=== PATIENT | female | born 1930 | race Caucasian/White ===

== ENCOUNTER 2020-03-23 14:29 | Inpatient (IN) | payer MEDICARE, MEDICAID ==
[~2020-03-23] VITALS: Ht 132.1 cm; Wt 64.0 kg
[~2020-03-23 14:29] MED LIST: FURO40TA5 PO; IPRA3AMP31 NEB; LEVO100T PO; OMEP20CA14 MT
[2020-03-23] MEDS ORDERED: SODIUM CHLORIDE 0.9% 1000ML BAG (SEPSIS BOLUS) IV ONE (15:00)
[2020-03-23 15:39] LABS: CLARITY URINE CLEAR (CLEAR); COLOR URINE YELLOW (YELLOW); KETONES URINE NEGATIVE (NEGATIVE); LEUKOCYTE ESTERASE URINE TRACE (NEGATIVE); NITRITE URINE NEGATIVE (NEGATIVE); OCCULT BLOOD URINE TRACE (NEGATIVE); PROTEIN URINE NEGATIVE (NEGATIVE); SPECIFIC GRAVITY URINE 1.008 (1.005-1.030); UROBILINOGEN URINE 0.2 E.U./dL (0.2-1.0)
[2020-03-23 15:42] LABS: BASOPHILS % 0.5 % (0.0-2.0); EOSINOPHILS % 0.9 % (0.0-5.0); HEMATOCRIT. 37.6 % (36.0-48.0); HEMOGLOBIN. 12.4 g/dL (12.0-16.0); LYMPHOCYTES % 32.9 % (20.0-50.0); MEAN CORPUSCULAR HEMOGLOBIN 28.2 pg (28.0-32.0); MEAN CORPUSCULAR VOLUME 85.5 fL (81.0-99.0); MEAN PLATELET VOLUME 9.1 fl (7.4-10.4); MONOCYTES % 7.9 % (2.0-8.0); NEUTROPHILS % 57.8 % (40.0-76.0); PLATELET 270 x1000/uL (130-400); RED CELL DISTRIBUTION WIDTH 14.5 % (11.6-14.6)
[2020-03-23] MEDS ORDERED: IPRATROPIUM BROMIDE (0.02%) 0.5MG/2.5ML NEB HHN ONE (15:45)
[2020-03-23] MEDS ORDERED: PREDNISONE 20MG TABLET PO ONE (15:45)
[2020-03-23] MEDS ORDERED: ALBUTEROL (0.083%) 2.5MG/3ML NEB HHN ONE (15:45)
[2020-03-23 15:49] LABS: PROTHROMBIN TIME 10.2 sec (9.6-11.0)
[2020-03-23 15:50] LABS: CHLORIDE 102 mEq/L (98-107)
[2020-03-23] MEDS ORDERED: LEVOFLOXACIN 500MG PREMIX 100 ML IV ONE (16:30)
[2020-03-23] MEDS ORDERED: ONDANSETRON HCL 4MG/2ML INJ IV PRN (17:00)
[2020-03-23] MEDS ORDERED: MAGNESIUM/ALUMINUM HYDROXIDE/SIMETHICONE 30ML UDC PO PRN (17:00)
[2020-03-23] MEDS ORDERED: ACETAMINOPHEN 325MG TABLET PO PRN ×2 (17:00)
[2020-03-23] MEDS ORDERED: CLONIDINE 0.1MG TABLET PO PRN (17:00)
[2020-03-23] MEDS ORDERED: ENOXAPARIN 40MG/0.4ML SYR SUBCUT SCH (17:00)
[2020-03-23] MEDS ORDERED: IPRATROPIUM/ALBUTEROL 0.5-3(2.5)MG/3ML NEB NEB PRN (17:00)
[2020-03-23] MEDS ORDERED: GUAIFENESIN 200MG/10ML SUGAR FREE UDC PO PRN (17:00)
[2020-03-23] MEDS ORDERED: NA PHOS,M-B/NA PHOS,DI-BA ENEMA 118ML PR PRN (17:00)
[2020-03-23] MEDS ORDERED: NITROGLYCERIN 0.4MG TABLET SL SL PRN (17:00)
[2020-03-23] MEDS ORDERED: TRAMADOL 50MG TABLET PO PRN (17:00)
[2020-03-23] MEDS ORDERED: DOCUSATE SODIUM 100MG CAPSULE PO PRN (17:00)
[2020-03-23] MEDS: ENOXAPARIN 30MG/0.3ML SYR SUBCUT SCH (17:35)
[2020-03-23] MEDS: FUROSEMIDE 40MG/4ML VIAL IVP SCH (17:35)
[2020-03-23 20:38] LABS: T4 FREE 1.51 ng/dL (0.76-1.46)
[2020-03-23] MEDS: LISINOPRIL 5MG TABLET PO SCH (21:00)
[2020-03-23] MEDS ORDERED: ZOLPIDEM TARTRATE 5MG TABLET PO PRN (21:00)
[2020-03-23] MEDS: SPIRONOLACTONE 25MG TABLET PO SCH (21:21)
[2020-03-23] MEDS: GUAIFENESIN/DM 600MG/30MG ER TAB 12HR PO SCH (21:22)
[2020-03-23] MEDS: FAMOTIDINE 20MG TABLET PO SCH (21:22)
[2020-03-23] MEDS: ASCORBIC ACID 500 MG TABLET PO SCH (21:22)
[2020-03-23 23:22] VITALS: BP 126/72
[2020-03-23 23:55] LABS: CREATINE KINASE MB FRACTION 1.2 ng/mL (0.5-3.6)
[2020-03-24] VITALS: BP 123/43
[2020-03-24 04:00] VITALS: BP 97/49
[2020-03-24 05:47] LABS: CHLORIDE 103 mEq/L (98-107)
[2020-03-24 05:57] LABS: CREATINE KINASE 37 IU/L (26-192)
[2020-03-24 05:59] LABS: PHOSPHORUS 3.7 mg/dL (2.5-4.9)
[2020-03-24 06:00] LABS: CREATINE KINASE MB FRACTION 1.5 ng/mL (0.5-3.6)
[2020-03-24 06:10] LABS: HEMATOCRIT. 34.3 % (36.0-48.0); HEMOGLOBIN. 11.4 g/dL (12.0-16.0); MEAN CORPUSCULAR HEMOGLOBIN 28.3 pg (28.0-32.0); MEAN CORPUSCULAR VOLUME 85.5 fL (81.0-99.0); MEAN PLATELET VOLUME 9.8 fl (7.4-10.4); PLATELET 246 x1000/uL (130-400); RED BLOOD CELL COUNT 4.02 mill/uL (4.2-5.4); RED CELL DISTRIBUTION WIDTH 14.6 % (11.6-14.6)
[2020-03-24] MEDS: FUROSEMIDE 40MG/4ML VIAL IVP SCH ×2 (07:35→19:17)
[2020-03-24 08:00] VITALS: BP 123/72
[2020-03-24] MEDS: ZINC SULFATE 220 MG ( 50 ) CAPSULE PO SCH (08:44)
[2020-03-24] MEDS: LISINOPRIL 5MG TABLET PO SCH ×2 (08:44→21:00)
[2020-03-24] MEDS: ASCORBIC ACID 500 MG TABLET PO SCH ×2 (08:44→21:39)
[2020-03-24] MEDS: GUAIFENESIN/DM 600MG/30MG ER TAB 12HR PO SCH ×2 (08:44→21:39)
[2020-03-24] MEDS: ASPIRIN 81MG EC TABLET PO SCH (08:45)
[2020-03-24] MEDS: SPIRONOLACTONE 25MG TABLET PO SCH ×2 (09:00→21:00)
[2020-03-24 09:05] LABS: PLATELET ESTIMATE NORMAL
[2020-03-24] MEDS: LEVOTHYROXINE SODIUM 112MCG TABLET PO SCH (10:40)
[2020-03-24 12:00] VITALS: BP 106/65
[2020-03-24 16:00] VITALS: BP 119/70
[2020-03-24] MEDS: ENOXAPARIN 30MG/0.3ML SYR SUBCUT SCH (19:18)
[2020-03-24 20:00] VITALS: BP 95/53
[2020-03-24] MEDS: FAMOTIDINE 20MG TABLET PO SCH (21:39)
[2020-03-25] VITALS (9 sets, daily range): BP systolic 80–101; BP diastolic 37–47
[2020-03-25] MEDS: FUROSEMIDE 40MG/4ML VIAL IVP SCH ×2 (07:15→17:15)
[2020-03-25] MEDS: SPIRONOLACTONE 25MG TABLET PO SCH ×2 (09:00→21:00)
[2020-03-25] MEDS: LISINOPRIL 5MG TABLET PO SCH ×2 (09:00→21:00)
[2020-03-25] MEDS: ZINC SULFATE 220 MG ( 50 ) CAPSULE PO SCH (10:15)
[2020-03-25] MEDS: ASCORBIC ACID 500 MG TABLET PO SCH ×2 (10:15→21:39)
[2020-03-25] MEDS: ASPIRIN 81MG EC TABLET PO SCH (10:15)
[2020-03-25] MEDS: GUAIFENESIN/DM 600MG/30MG ER TAB 12HR PO SCH ×2 (10:15→21:39)
[2020-03-25] MEDS: LEVOTHYROXINE SODIUM 112MCG TABLET PO SCH (10:15)
[2020-03-25] MEDS: ENOXAPARIN 30MG/0.3ML SYR SUBCUT SCH (18:27)
[2020-03-25] MEDS: FAMOTIDINE 20MG TABLET PO SCH (21:39)
[2020-03-26] VITALS (7 sets, daily range): BP systolic 76–127; BP diastolic 31–56
[2020-03-26] MEDS: LEVOTHYROXINE SODIUM 112MCG TABLET PO SCH (06:46)
[2020-03-26] MEDS: FUROSEMIDE 40MG/4ML VIAL IVP SCH ×2 (07:02→17:15)
[2020-03-26] MEDS: GUAIFENESIN/DM 600MG/30MG ER TAB 12HR PO SCH ×2 (09:42→20:16)
[2020-03-26] MEDS: ASPIRIN 81MG EC TABLET PO SCH (09:42)
[2020-03-26] MEDS: SPIRONOLACTONE 25MG TABLET PO SCH ×2 (09:42→20:29)
[2020-03-26] MEDS: ZINC SULFATE 220 MG ( 50 ) CAPSULE PO SCH (09:43)
[2020-03-26] MEDS: ASCORBIC ACID 500 MG TABLET PO SCH ×2 (09:43→20:16)
[2020-03-26] MEDS: LISINOPRIL 5MG TABLET PO SCH ×2 (09:43→20:29)
[2020-03-26] MEDS: ENOXAPARIN 30MG/0.3ML SYR SUBCUT SCH (18:38)
[2020-03-26] MEDS: FAMOTIDINE 20MG TABLET PO SCH (20:16)
[2020-03-27] VITALS: BP 110/28
[2020-03-27 04:00] VITALS: BP 101/34
[2020-03-27 06:21] VITALS: BP 111/32
[2020-03-27] MEDS: LEVOTHYROXINE SODIUM 112MCG TABLET PO SCH (06:21)
[2020-03-27] MEDS: FUROSEMIDE 40MG/4ML VIAL IVP SCH (06:21)
[2020-03-27 08:00] VITALS: BP 104/47
[2020-03-27] MEDS: LISINOPRIL 5MG TABLET PO SCH (09:00)
[2020-03-27] MEDS: ASPIRIN 81MG EC TABLET PO SCH (09:02)
[2020-03-27] MEDS: SPIRONOLACTONE 25MG TABLET PO SCH (09:02)
[2020-03-27] MEDS: ZINC SULFATE 220 MG ( 50 ) CAPSULE PO SCH (09:02)
[2020-03-27] MEDS: ASCORBIC ACID 500 MG TABLET PO SCH (09:03)
[2020-03-27] MEDS: GUAIFENESIN/DM 600MG/30MG ER TAB 12HR PO SCH (09:03)
[2020-03-27 10:10] VITALS: BP 104/47
[2020-03-27 12:00] VITALS: BP 126/50
== END 2020-03-27 12:25 | disposition home or self-care (01) | DRG 291 ==
LOC: ER 14:29 → SUPCPDRO 16:50 → 7EST 17:12 → EDBEDREQSVC 17:14 → EDBEDREQ 17:14 → EDBEDREQTM 17:14 → ENRESERV 21:08 → 8WST 03-24 21:10
PROVIDERS: ADMIT Internal Medicine; ATTEND Internal Medicine
DX: I11.0 Hypertensive heart disease with heart failure (principal); J96.00 Acute respiratory failure, unspecified whether with hypoxia or hypercapnia; J18.9 Pneumonia, unspecified organism; I50.33 Acute on chronic diastolic (congestive) heart failure; K21.9 Gastro-esophageal reflux disease without esophagitis; J44.9 Chronic obstructive pulmonary disease, unspecified; Z20.828 Contact with and (suspected) exposure to other viral communicable diseases; E03.9 Hypothyroidism, unspecified; Z95.0 Presence of cardiac pacemaker; Z95.1 Presence of aortocoronary bypass graft; Z88.1 Allergy status to other antibiotic agents; Z88.0 Allergy status to penicillin; Z79.899 Other long term (current) drug therapy
CPT/HCPCS: 36415; 71045; 80053; 80061; 81003; 82550; 82553; 83036; 83605; 83735; 83880; 84100; 84145; 84439; 84443; 84484; 85025; 87635; 87804; 93005; 93970; 94644; 97116; 97162; 97166; 99291; J1650; J1940; J1956; J2405; J7030; J7512

== ENCOUNTER 2020-07-09 17:28 | Inpatient (IN) | payer MEDICARE, MEDICAID ==
[~2020-07-09] VITALS: Ht 165.1 cm; Wt 61.3 kg
[~2020-07-09 17:28] MED LIST changes: +ASCO500T20 PO; +DOCU-150 PO; +FERR325T6 MT; +LIP40 PO; +MIDO2.5T PO
[2020-07-09 18:16] LABS: BASOPHILS % 0.7 % (0.0-2.0); EOSINOPHILS % 1.3 % (0.0-5.0); HEMATOCRIT. 35.8 % (36.0-48.0); HEMOGLOBIN. 11.5 g/dL (12.0-16.0); LYMPHOCYTES % 42.5 % (20.0-50.0); MEAN CORPUSCULAR VOLUME 87.3 fL (81.0-99.0); MEAN PLATELET VOLUME 8.9 fl (7.4-10.4); MONOCYTES % 6.9 % (2.0-8.0); NEUTROPHILS % 48.6 % (40.0-76.0); PLATELET 269 x1000/uL (130-400); RED CELL DISTRIBUTION WIDTH 16.4 % (11.6-14.6)
[2020-07-09 18:22] LABS: CHLORIDE 104 mEq/L (98-107)
[2020-07-09 18:25] LABS: BG BASE EXCESS -1.6 mmol/L (-2.0-2.0); BG CARBOXYHEMOGLOBIN 0.2 % (0.5-1.5); BG HCO3 ACT 27.1 mmol/L (22.0-26.0); BG METHEMOGLOBIN 0.2 % (0.0-1.5); BG OXYHEMOGLOBIN 91.6 % (94.0-97.0); BG PCO2 65.7 mmHg (35.0-45.0); BG PH 7.234 (7.350-7.450); BG PO2 69.1 mmHg (75.0-100.0); BG SAMPLE SITE RIGHT RADIAL; BG TOTAL HEMOGLOBIN 12.4 g/dL (12.0-18.0); BG VENT MODE NASAL CANNULA
[2020-07-09 18:25] LABS: PROTHROMBIN TIME 10.8 sec (9.6-11.0)
[2020-07-09] MEDS ORDERED: IOHEXOL-350 100 ML BOTTLE ONE (19:37)
[2020-07-09] MEDS ORDERED: AZITHROMYCIN 500 MG in DEXT 5% WATER 250 ML IV SCH (20:30)
[2020-07-09] MEDS ORDERED: LEVOFLOXACIN 750MG PREMIX 150 ML IV ONE (20:30)
[2020-07-10 04:43] VITALS: BP 135/50
[2020-07-10 04:55] VITALS: BP 135/50
[2020-07-10] MEDS ORDERED: ONDANSETRON HCL 4MG/2ML INJ IV PRN (08:15)
[2020-07-10] MEDS: FUROSEMIDE 40MG/4ML VIAL IVP SCH ×2 (10:29→16:17)
[2020-07-10 12:00] VITALS: BP 117/43
[2020-07-10] MEDS ORDERED: ALBUTEROL 6.7GM HFA INHALER ORI PRN (13:45)
[2020-07-10 16:10] VITALS: BP 112/61
[2020-07-10] MEDS: ACETAMINOPHEN 325MG TABLET PO PRN (16:17)
[2020-07-10 20:00] VITALS: BP 130/54
[2020-07-10] MEDS: ATORVASTATIN CALCIUM 40MG TABLET PO SCH (20:09)
[2020-07-11] VITALS: BP 109/54
[2020-07-11 04:00] VITALS: BP 114/61
[2020-07-11 08:00] VITALS: BP 112/63
[2020-07-11] MEDS: ACETAMINOPHEN 325MG TABLET PO PRN (08:08)
[2020-07-11] MEDS: LEVOTHYROXINE SODIUM 100MCG TABLET PO SCH (08:08)
[2020-07-11] MEDS: FUROSEMIDE 40MG/4ML VIAL IVP SCH ×2 (08:08→17:11)
[2020-07-11] MEDS ORDERED: IPRATROPIUM/ALBUTEROL 0.5-3(2.5)MG/3ML NEB HHN PRN (11:00)
[2020-07-11 12:15] VITALS: BP 103/48
[2020-07-11] MEDS: IPRATROPIUM/ALBUTEROL 0.5-3(2.5)MG/3ML NEB HHN SCH (14:30)
[2020-07-11] MEDS ORDERED: LEVOFLOXACIN 500MG PREMIX 100 ML IV SCH (15:00)
[2020-07-11 15:16] LABS: BASOPHILS % 0.3 % (0.0-2.0); EOSINOPHILS % 0.4 % (0.0-5.0); HEMATOCRIT. 31.2 % (36.0-48.0); HEMOGLOBIN. 10.2 g/dL (12.0-16.0); LYMPHOCYTES % 10.5 % (20.0-50.0); MEAN CORPUSCULAR HEMOGLOBIN 28.5 pg (28.0-32.0); MEAN CORPUSCULAR VOLUME 87.5 fL (81.0-99.0); MEAN PLATELET VOLUME 9.4 fl (7.4-10.4); MONOCYTES % 9.3 % (2.0-8.0); NEUTROPHILS % 79.5 % (40.0-76.0); PLATELET 171 x1000/uL (130-400); RED BLOOD CELL COUNT 3.57 mill/uL (4.2-5.4); RED CELL DISTRIBUTION WIDTH 16.1 % (11.6-14.6)
[2020-07-11 16:00] VITALS: BP 106/60
[2020-07-11 20:00] VITALS: BP 104/44
[2020-07-11] MEDS: ATORVASTATIN CALCIUM 40MG TABLET PO SCH (21:00)
[2020-07-12 00:54] VITALS: BP 109/62
[2020-07-12] MEDS: IPRATROPIUM/ALBUTEROL 0.5-3(2.5)MG/3ML NEB HHN SCH ×2 (01:02→15:23)
[2020-07-12] MEDS: ACETAMINOPHEN 325MG TABLET PO PRN ×2 (01:23→13:23)
[2020-07-12 04:00] VITALS: BP 101/49
[2020-07-12] MEDS: LEVOTHYROXINE SODIUM 100MCG TABLET PO SCH (06:30)
[2020-07-12 07:35] LABS: BASOPHILS % 0.5 % (0.0-2.0); EOSINOPHILS % 0.5 % (0.0-5.0); HEMATOCRIT. 30.8 % (36.0-48.0); HEMOGLOBIN. 10.1 g/dL (12.0-16.0); LYMPHOCYTES % 12.2 % (20.0-50.0); MEAN CORPUSCULAR HEMOGLOBIN 28.3 pg (28.0-32.0); MEAN CORPUSCULAR VOLUME 86.7 fL (81.0-99.0); MEAN PLATELET VOLUME 10.4 fl (7.4-10.4); MONOCYTES % 9.6 % (2.0-8.0); NEUTROPHILS % 77.2 % (40.0-76.0); PLATELET 156 x1000/uL (130-400); RED BLOOD CELL COUNT 3.55 mill/uL (4.2-5.4)
[2020-07-12 08:00] VITALS: BP 108/40
[2020-07-12] MEDS: FUROSEMIDE 40MG/4ML VIAL IVP SCH (09:04)
[2020-07-12 12:00] VITALS: BP 103/61
[2020-07-12 14:28] LABS: BG BASE EXCESS 4.7 mmol/L (-2.0-2.0); BG CARBOXYHEMOGLOBIN 0.6 % (0.5-1.5); BG DEOXYHEMOGLOBIN 12.6 % (0.0-5.0); BG FRACTION INSPIRED OXYGEN 21; BG HCO3 ACT 29.7 mmol/L (22.0-26.0); BG METHEMOGLOBIN 0.1 % (0.0-1.5); BG OXYGEN SATURATION 87.3 % (92.0-98.5); BG OXYHEMOGLOBIN 86.7 % (94.0-97.0); BG PCO2 45.8 mmHg (35.0-45.0); BG PO2 49.6 mmHg (75.0-100.0); BG SAMPLE SITE RIGHT RADIAL; BG VENT MODE ROOM AIR
[2020-07-12] MEDS: LEVOFLOXACIN 250MG PREMIX 100 ML IV SCH (15:38)
[2020-07-12 16:00] VITALS: BP 114/62
[2020-07-12 20:23] VITALS: BP 110/63
[2020-07-12] MEDS: ATORVASTATIN CALCIUM 40MG TABLET PO SCH (20:40)
[2020-07-12] MEDS ORDERED: ZOLPIDEM TARTRATE 5MG TABLET PO PRN (21:00)
[2020-07-13 00:22] VITALS: BP 112/47
[2020-07-13] MEDS: IPRATROPIUM/ALBUTEROL 0.5-3(2.5)MG/3ML NEB HHN SCH ×2 (01:04→08:50)
[2020-07-13 04:00] VITALS: BP 107/57
[2020-07-13] MEDS: SODIUM CHLORIDE 0.45% 1,000 ML IV SCH ×2 (06:34→19:20)
[2020-07-13] MEDS: LEVOTHYROXINE SODIUM 100MCG TABLET PO SCH (06:35)
[2020-07-13 07:03] LABS: BASOPHILS % 0.5 % (0.0-2.0); HEMATOCRIT. 30.1 % (36.0-48.0); HEMOGLOBIN. 9.9 g/dL (12.0-16.0); LYMPHOCYTES % 13.3 % (20.0-50.0); MEAN CORPUSCULAR HEMOGLOBIN 28.5 pg (28.0-32.0); MEAN CORPUSCULAR VOLUME 86.4 fL (81.0-99.0); MEAN PLATELET VOLUME 9.2 fl (7.4-10.4); MONOCYTES % 8.5 % (2.0-8.0); NEUTROPHILS % 76.7 % (40.0-76.0); PLATELET 183 x1000/uL (130-400); RED BLOOD CELL COUNT 3.48 mill/uL (4.2-5.4); RED CELL DISTRIBUTION WIDTH 16.3 % (11.6-14.6)
[2020-07-13 08:00] VITALS: BP 139/66
[2020-07-13] MEDS: GUAIFENESIN 600MG ER TABLET PO SCH ×2 (10:00→21:48)
[2020-07-13] MEDS ORDERED: MIDAZOLAM HCL 5 MG/5 ML VIAL ONE (10:58)
[2020-07-13] MEDS ORDERED: FENTANYL CITRATE/PF 50MCG/ML 5ML VIAL ONE (10:58)
[2020-07-13] MEDS ORDERED: IOHEXOL-300 100 ML BOTTLE ONE (10:59)
[2020-07-13] MEDS ORDERED: LIDOCAINE HCL 1% 20ML VIAL (Pyxis) INJ ONE (10:59)
[2020-07-13] MEDS ORDERED: IODIXANOL 320MG/ML 200ML BOTTLE ONE (11:00)
[2020-07-13] MEDS ORDERED: HEPARIN SODIUM 1,000 UNIT/1ML VIAL IV ONE (11:00)
[2020-07-13] MEDS ORDERED: PHENYLEPHRINE 100MCG/ML 10ML VIAL (CATH LAB) IV ONE (11:00)
[2020-07-13] MEDS ORDERED: NICARDIPINE 100MCG/ML 10ML VIAL (CATH LAB) IV ONE (11:00)
[2020-07-13] MEDS ORDERED: NITROGLYCERIN 50MCG/ML 10ML VIAL (CATH LAB) IV ONE (11:00)
[2020-07-13] MEDS ORDERED: MORPHINE SULFATE 2 MG/ML CPJ (NOT FOR IM USE) IV PRN (12:15)
[2020-07-13] MEDS ORDERED: ONDANSETRON HCL 4MG/2ML INJ IV PRN (12:15)
[2020-07-13] MEDS ORDERED: ATROPINE SULFATE 1MG/10ML SYR IV PRN (12:15)
[2020-07-13] MEDS ORDERED: ACETAMINOPHEN 325MG TABLET PO PRN (12:15)
[2020-07-13] MEDS ORDERED: SODIUM CHLORIDE 0.45% 375 ML IV ONE (12:30)
[2020-07-13] MEDS: LEVOFLOXACIN 250MG PREMIX 100 ML IV SCH (15:45)
[2020-07-13 16:00] VITALS: BP 128/60
[2020-07-13 17:54] VITALS: BP 110/53
[2020-07-13 20:00] VITALS: BP 126/57
[2020-07-13] MEDS: ATORVASTATIN CALCIUM 40MG TABLET PO SCH (21:48)
[2020-07-14] VITALS (10 sets, daily range): BP systolic 102–144; BP diastolic 42–82
[2020-07-14] MEDS: LEVOTHYROXINE SODIUM 100MCG TABLET PO SCH (05:54)
[2020-07-14 06:23] LABS: CHLORIDE 104 mEq/L (98-107)
[2020-07-14 06:25] LABS: BASOPHILS % 0.5 % (0.0-2.0); EOSINOPHILS % 1.6 % (0.0-5.0); HEMOGLOBIN. 10.4 g/dL (12.0-16.0); LYMPHOCYTES % 13.6 % (20.0-50.0); MEAN CORPUSCULAR HEMOGLOBIN 28.7 pg (28.0-32.0); MEAN CORPUSCULAR VOLUME 88.3 fL (81.0-99.0); MEAN PLATELET VOLUME 9.3 fl (7.4-10.4); MONOCYTES % 9.1 % (2.0-8.0); NEUTROPHILS % 75.2 % (40.0-76.0); PLATELET 199 x1000/uL (130-400); RED BLOOD CELL COUNT 3.63 mill/uL (4.2-5.4); RED CELL DISTRIBUTION WIDTH 16.2 % (11.6-14.6)
[2020-07-14] MEDS: GUAIFENESIN 600MG ER TABLET PO SCH ×2 (08:01→21:00)
[2020-07-14] MEDS ORDERED: FUROSEMIDE 40MG/4ML VIAL IVP SCH (11:00)
[2020-07-14] MEDS: ENOXAPARIN 30MG/0.3ML SYR SUBCUT SCH (12:23)
[2020-07-14 12:43] LABS: BG BASE EXCESS 5.6 mmol/L (-2.0-2.0); BG CARBOXYHEMOGLOBIN 0.2 % (0.5-1.5); BG DEOXYHEMOGLOBIN 8.8 % (0.0-5.0); BG FRACTION INSPIRED OXYGEN 21; BG HCO3 ACT 31.3 mmol/L (22.0-26.0); BG METHEMOGLOBIN 0.3 % (0.0-1.5); BG OXYGEN SATURATION 91.2 % (92.0-98.5); BG OXYHEMOGLOBIN 90.7 % (94.0-97.0); BG PCO2 51.6 mmHg (35.0-45.0); BG PH 7.401 (7.350-7.450); BG PO2 59.4 mmHg (75.0-100.0); BG SAMPLE SITE RIGHT BRACHIAL; BG TOTAL HEMOGLOBIN 10.7 g/dL (12.0-18.0); BG VENT MODE ROOM AIR
[2020-07-14] MEDS: LEVOFLOXACIN 250MG PREMIX 100 ML IV SCH (14:59)
[2020-07-14] MEDS ORDERED: CEFTRIAXONE 1 G PREMIX 50 ML IV SCH (15:45)
[2020-07-14] MEDS: ATORVASTATIN CALCIUM 40MG TABLET PO SCH (20:59)
[2020-07-15] VITALS (7 sets, daily range): BP systolic 101–128; BP diastolic 44–62
[2020-07-15] MEDS: LEVOTHYROXINE SODIUM 100MCG TABLET PO SCH (05:54)
[2020-07-15 08:29] LABS: BASOPHILS % 0.5 % (0.0-2.0); EOSINOPHILS % 1.9 % (0.0-5.0); HEMATOCRIT. 29.9 % (36.0-48.0); HEMOGLOBIN. 9.8 g/dL (12.0-16.0); LYMPHOCYTES % 19.9 % (20.0-50.0); MEAN CORPUSCULAR HEMOGLOBIN 28.8 pg (28.0-32.0); MEAN CORPUSCULAR VOLUME 87.9 fL (81.0-99.0); MEAN PLATELET VOLUME 9.5 fl (7.4-10.4); MONOCYTES % 9.5 % (2.0-8.0); NEUTROPHILS % 68.2 % (40.0-76.0); PLATELET 201 x1000/uL (130-400); RED BLOOD CELL COUNT 3.41 mill/uL (4.2-5.4); RED CELL DISTRIBUTION WIDTH 16.1 % (11.6-14.6)
[2020-07-15 08:35] LABS: CHLORIDE 102 mEq/L (98-107)
[2020-07-15] MEDS: ENOXAPARIN 30MG/0.3ML SYR SUBCUT SCH (09:24)
[2020-07-15] MEDS: GUAIFENESIN 600MG ER TABLET PO SCH ×2 (09:24→21:02)
[2020-07-15] MEDS: ATORVASTATIN CALCIUM 40MG TABLET PO SCH (21:02)
[2020-07-16] VITALS (8 sets, daily range): BP systolic 108–138; BP diastolic 44–88
[2020-07-16] MEDS: IPRATROPIUM/ALBUTEROL 0.5-3(2.5)MG/3ML NEB HHN SCH ×2 (00:45→07:26)
[2020-07-16] MEDS: LEVOTHYROXINE SODIUM 100MCG TABLET PO SCH (06:01)
[2020-07-16 06:52] LABS: BASOPHILS % 1.2 % (0.0-2.0); EOSINOPHILS % 2.1 % (0.0-5.0); HEMATOCRIT. 30.6 % (36.0-48.0); LYMPHOCYTES % 19.5 % (20.0-50.0); MEAN CORPUSCULAR HEMOGLOBIN 28.7 pg (28.0-32.0); MEAN CORPUSCULAR VOLUME 87.8 fL (81.0-99.0); MEAN PLATELET VOLUME 9.2 fl (7.4-10.4); MONOCYTES % 9.2 % (2.0-8.0); PLATELET 189 x1000/uL (130-400); RED BLOOD CELL COUNT 3.48 mill/uL (4.2-5.4); RED CELL DISTRIBUTION WIDTH 16.2 % (11.6-14.6)
[2020-07-16 07:32] LABS: CHLORIDE 104 mEq/L (98-107)
[2020-07-16] MEDS: GUAIFENESIN 600MG ER TABLET PO SCH (09:19)
[2020-07-16] MEDS: ENOXAPARIN 30MG/0.3ML SYR SUBCUT SCH (09:19)
== END 2020-07-16 13:08 | disposition home or self-care (01) | DRG 189 ==
LOC: ER 17:28 → 7WST 21:52 → EDBEDREQTM 22:06 → EDBEDREQ 22:06 → ENRESERV 07-10 01:24 → 6WST 07-11 09:00 → 3WST 07-13 12:59
PROVIDERS: ADMIT Internal Medicine; ATTEND Internal Medicine
PROC: 4A023N8 Measurement of Cardiac Sampling and Pressure, Bilateral, Percutaneous Approach (ICD-10-PCS; principal; 2020-07-13)
PROC: B2111ZZ Fluoroscopy of Multiple Coronary Arteries using Low Osmolar Contrast (ICD-10-PCS; 2020-07-13)
DX: J96.21 Acute and chronic respiratory failure with hypoxia (principal); E87.2 Acidosis; I50.42 Chronic combined systolic (congestive) and diastolic (congestive) heart failure; I11.0 Hypertensive heart disease with heart failure; I35.0 Nonrheumatic aortic (valve) stenosis; E03.9 Hypothyroidism, unspecified; E11.9 Type 2 diabetes mellitus without complications; E78.5 Hyperlipidemia, unspecified; D64.9 Anemia, unspecified; J84.10 Pulmonary fibrosis, unspecified; Z20.822 Contact with and (suspected) exposure to COVID-19; I25.10 Atherosclerotic heart disease of native coronary artery without angina pectoris; I27.20 Pulmonary hypertension, unspecified; I71.2 Thoracic aortic aneurysm, without rupture; Z95.0 Presence of cardiac pacemaker; Z95.1 Presence of aortocoronary bypass graft; Z79.899 Other long term (current) drug therapy; Z88.1 Allergy status to other antibiotic agents; Z88.0 Allergy status to penicillin
CPT/HCPCS: 36415; 36600; 71045; 71275; 80048; 80053; 82375; 82805; 83605; 83880; 84145; 84484; 85025; 87426; 93005; 93456; 93880; 94618; 94640; 99285; C1760; C1769; C1893; J0456; J1644; J1650; J1940; J1956; J2250; J2370; J3010; J3490; J7060; Q9967; U0003